=== PATIENT | female | born 1980 | race American Indian/Alaskan Native ===

== ENCOUNTER 2018-03-14 17:08 | Emergency (ER) | payer MEDICARE, OTHER ==
[2018-03-14] MEDS ORDERED: ASPIRIN PO ONE (17:45)
[2018-03-14 18:21] LABS: BUN/Creatinine Ratio 10; Blood Urea Nitrogen 11 mg/dL (7-17); Calcium 8.9 mg/dL (8.4-10.2); Hemolysis Index 13
[2018-03-14 18:24] LABS: Basophils % (Auto) 0.8 % (0.0-1.8); Eosinophils # (Auto) 0.1 K/mm3 (0.0-0.4); Eosinophils % (Auto) 2.4 % (0.0-4.3); Hemoglobin 12.7 gm/dl (10.1-14.3); Lymphocytes # (Auto) 1.6 K/mm3 (1.2-5.4); Lymphocytes % (Auto) 34.2 % (13.4-35.0); Mean Corpuscular HGB Conc 32 % (30-34); Mean Corpuscular Hemoglobin 27 pg (28-32); Mean Corpuscular Volume 83 fl (79-97); Monocytes # (Auto) 0.4 K/mm3 (0.0-0.8); Monocytes % (Auto) 7.8 % (0.0-7.3); Platelet Count 245 K/mm3 (140-440); Red Blood Count 4.68 M/mm3 (3.65-5.03); Red Cell Distribution Width 15.4 % (13.2-15.2)
[2018-03-14 18:43] LABS: Bacteria,Urine 2+ /HPF (Negative); Bilirubin,Urine NEG (Negative); Blood,Urine NEG (Negative); Color,Urine Yellow (Yellow); Mucus,Urine 3+ /HPF; Urobilinogen,Urine < 2.0 mg/dL (<2.0)
[2018-03-14 18:44] LABS: HCG Qualitative,Urine Negative (Negative)
--- NOTE | 2018-03-14 19:29 | Emergency Department Report ---
ED General Adult HPI - General Chief complaint: Chest Pain Stated complaint: CHEST PAIN AND S.O.B Time Seen by Provider: 03/14/18 17:56 Source: patient Mode of arrival: Ambulatory Limitations: No Limitations - History of Present Illness Initial comments: Patient is 38 years old female is no significant past medical history. Patient presented with two weeks history of generalized body pain including chest associated with fluttering at night and patient stated that she feels that something is crawling out of her body. 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 Patient is stated that her son was recently treated for pink warm. - Related Data Home Medications Medication Instructions Recorded Confirmed Last Taken Ibuprofen [Motrin] 2 - 3 tab PO QPM PRN 03/14/18 03/14/18 Unknown Previous Rx's Medication Instructions Recorded Last Taken Type Albendazole 400 mg PO ONCE #1 powder 03/14/18 Unknown Rx Allergies Allergy/AdvReac Type Severity Reaction Status Date / Time amoxicillin Allergy Unknown Verified 03/14/18 17:48 ED Review of Systems ROS: Stated complaint: CHEST PAIN AND S.O.B Other details as noted in HPI Comment: All other systems reviewed and negative Constitutional: denies: chills, fever Respiratory: denies: cough, orthopnea, shortness of breath, SOB with exertion, SOB at rest, wheezing Cardiovascular: denies: chest pain, palpitations, dyspnea on exertion Gastrointestinal: denies: abdominal pain, nausea, vomiting, constipation, hematemesis, melena, hematochezia Neurological: denies: headache, weakness, numbness, paresthesias ED Past Medical Hx - Social History Smoking Status: Never Smoker Substance Use Type: Alcohol - Medications Home Medications: Home Medications Medication Instructions Recorded Confirmed Last Taken Type Albendazole 400 mg PO ONCE #1 powder 03/14/18 Unknown Rx Ibuprofen [Motrin] 2 - 3 tab PO QPM PRN 03/14/18 03/14/18 Unknown History ED Physical Exam - General Limitations: No Limitations General appearance: alert, in no apparent distress - Head Head exam: Present: atraumatic, normocephalic, normal inspection - ENT ENT exam: Present: normal exam, normal orophraynx, mucous membranes moist - Neck Neck exam: Present: normal inspection, full ROM. Absent: tenderness, meningismus, lymphadenopathy, thyromegaly - Respiratory Respiratory exam: Present: normal lung sounds bilaterally. Absent: respiratory distress, wheezes, rales, rhonchi, chest wall tenderness, accessory muscle use, decreased breath sounds, prolonged expiratory - Cardiovascular Cardiovascular Exam: Present: regular rate, normal rhythm, normal heart sounds - GI/Abdominal GI/Abdominal exam: Present: soft, normal bowel sounds. Absent: distended, tenderness, guarding, rebound, rigid, organomegaly, mass, bruit, pulsatile mass , hernia - Extremities Exam Extremities exam: Present: normal inspection, full ROM, normal capillary refill - Neurological Exam Neurological exam: Present: alert, oriented X3, CN II-XII intact, normal gait - Skin Skin exam: Present: warm, intact, normal color ED Course Vital Signs 03/14/18 03/14/18 03/14/18 17:33 18:30 19:00 Temperature 98.7 F Pulse Rate 96 H 83 73 Respiratory 18 16 14 Rate Blood Pressure 116/82 110/75 109/67 O2 Sat by Pulse 97 96 98 Oximetry 03/14/18 03/14/18 03/14/18 19:16 19:30 19:46 Temperature Pulse Rate 79 74 Respiratory 20 16 16 Rate Blood Pressure 109/67 107/66 99/63 O2 Sat by Pulse 97 98 97 Oximetry 03/14/18 03/14/18 03/14/18 20:00 20:01 20:16 Temperature Pulse Rate 79 74 78 Respiratory 19 18 20 Rate Blood Pressure 112/72 108/59 O2 Sat by Pulse 97 98 99 Oximetry 03/14/18 03/14/18 03/14/18 20:30 20:46 21:00 Temperature Pulse Rate 75 75 77 Respiratory 15 18 15 Rate Blood Pressure 108/70 116/65 121/65 O2 Sat by Pulse 100 99 98 Oximetry 03/14/18 03/14/18 21:16 21:30 Temperature Pulse Rate 83 79 Respiratory 12 17 Rate Blood Pressure 115/70 119/63 O2 Sat by Pulse 98 98 Oximetry ED Medical Decision Making - Lab Data Result diagrams: 03/14/18 17:47 03/14/18 17:47 Critical care attestation.: If time is entered above; I have spent that time in minutes in the direct care of this critically ill patient, excluding procedure time. ED Disposition Clinical Impression: Pain, Family history of pinworm infection Disposition: DC- TO HOME OR SELFCARE Is pt being admited?: No Condition: Stable Instructions: Enterobiasis (ED) Prescriptions: Albendazole 400 mg PO ONCE #1 powder Referrals: LOLY [facility]CALA [Other] - 3-5 Days
[2018-03-14 21:47] VITALS: BP 119/63
== END 2018-03-14 22:04 | disposition home or self-care (01) ==
LOC: ED 17:08
DX: R07.9 Chest pain, unspecified (principal); R06.02 Shortness of breath; Z88.1 Allergy status to other antibiotic agents
CPT/HCPCS: 36415; 80048; 81001; 81025; 84484; 85025; 93005; 93010; 99284

== ENCOUNTER 2018-03-26 08:51 | Emergency (ER) | payer MEDICAID ==
[2018-03-26 09:34] VITALS: BP 122/80
--- NOTE | 2018-03-26 10:58 | Emergency Department Report ---
ED General Adult HPI - General Chief complaint: Medical Clearance Stated complaint: UPSET STOMACH Time Seen by Provider: 03/26/18 10:36 Source: patient Mode of arrival: Ambulatory Limitations: No Limitations - History of Present Illness Initial comments: Patient is a 38-year-old [place] Citizen female whose son was diagnosed with pinworms and treated week ago states that she has similar symptoms and is seeing worms in her stools. Patient has upset stomach. Patient's was given a prescription for albendazole week ago and is been unable to get this filled. Patient tried calling the emergency department to have the prescription changed with no changes patient is a prescription. - Related Data Home Medications Medication Instructions Recorded Confirmed Last Taken Ibuprofen [Motrin] 2 - 3 tab PO QPM PRN 03/14/18 03/14/18 Unknown Previous Rx's Medication Instructions Recorded Last Taken Type Albendazole 400 mg PO ONCE #1 powder 03/14/18 Unknown Rx Albendazole (Nf) [Albenza (Nf)] 400 mg PO ONCE #1 tablet 03/26/18 Unknown Rx Mebendazole [Emverm] 100 mg PO QWEEK #3 tab.chew 03/26/18 Unknown Rx Pyrantel Pamoate [Faustino's Pinworm] 1,000 mg PO ONCE 1 Days oral.susp 03/26/18 Unknown Rx Allergies Allergy/AdvReac Type Severity Reaction Status Date / Time amoxicillin Allergy Unknown Verified 03/14/18 17:48 ED Review of Systems ROS: Stated complaint: UPSET STOMACH Other details as noted in HPI Comment: All other systems reviewed and negative ED Past Medical Hx - Past Medical History Previous Medical History?: No - Surgical History Past Surgical History?: No Additional Surgical History: Thoracotomy 11/2015 - Social History Smoking Status: Never Smoker Substance Use Type: None - Medications Home Medications: Home Medications Medication Instructions Recorded Confirmed Last Taken Type Albendazole 400 mg PO ONCE #1 powder 03/14/18 Unknown Rx Ibuprofen [Motrin] 2 - 3 tab PO QPM PRN 03/14/18 03/14/18 Unknown History Albendazole (Nf) [Albenza (Nf)] 400 mg PO ONCE #1 tablet 03/26/18 Unknown Rx Mebendazole [Emverm] 100 mg PO QWEEK #3 tab.chew 03/26/18 Unknown Rx Pyrantel Pamoate [Faustino's Pinworm] 1,000 mg PO ONCE 1 Days oral.susp 03/26/18 Unknown Rx ED Physical Exam - General Limitations: No Limitations General appearance: alert, in no apparent distress - Head Head exam: Present: atraumatic, normocephalic - Eye Eye exam: Present: normal appearance - ENT ENT exam: Present: mucous membranes moist - Neck Neck exam: Present: normal inspection - Respiratory Respiratory exam: Present: normal lung sounds bilaterally. Absent: respiratory distress - Cardiovascular Cardiovascular Exam: Present: regular rate, normal rhythm. Absent: systolic murmur, diastolic murmur, rubs, gallop - GI/Abdominal GI/Abdominal exam: Present: soft, normal bowel sounds - Extremities Exam Extremities exam: Present: normal inspection - Back Exam Back exam: Present: normal inspection - Neurological Exam Neurological exam: Present: alert, oriented X3 - Psychiatric Psychiatric exam: Present: normal affect, normal mood - Skin Skin exam: Present: warm, dry, intact, normal color. Absent: rash ED Course Vital Signs 03/26/18 09:31 Temperature 98.3 F Pulse Rate 88 Blood Pressure 122/80 O2 Sat by Pulse 100 Oximetry ED Medical Decision Making - Medical Decision Making Patient is now medical emergency at this time. Patient had her prescription changed to Mebendazole but was given other Rx options as well (Abendazole tab and faustino pinworm) Patient will be discharged. Critical care attestation.: If time is entered above; I have spent that time in minutes in the direct care of this critically ill patient, excluding procedure time. ED Disposition Clinical Impression: Pinworms Disposition: MED SCREENING EXAM-LEFT Is pt being admited?: No Does the pt Need Aspirin: No Condition: Stable Prescriptions: Albendazole (Nf) [Albenza (Nf)] 400 mg PO ONCE #1 tablet Mebendazole [Emverm] 100 mg PO QWEEK #3 tab.chew Pyrantel Pamoate [Faustino's Pinworm] 1,000 mg PO ONCE 1 Days oral.susp Referrals: PRIMARY CARE,MD [Primary Care Provider] - 3-5 Days
== END 2018-03-26 11:06 | disposition left against medical advice (07) ==
LOC: ED 08:51
DX: B80 Enterobiasis (principal); Z88.1 Allergy status to other antibiotic agents
CPT/HCPCS: 99281